=== PATIENT | female | born 1995 | race Two or more races ===

== ENCOUNTER 2016-07-09 17:21 | Emergency (ER) | payer OTHER ==
[~2016-07-09] VITALS: Ht 154.9 cm; Wt 59.3 kg
[~2016-07-09 17:21] MED LIST: AMOXICILLIN500 MG PO; CLARITHROMYCIN500 M1 PO; CYANOCOBAL1000 MCG/2 IM; CYANOCOBALAM1000 MCG PO; FOLIC ACID1 MG PO; HYDROXYZINE HCL50 MG PO; MEDROL DOSEPAK4 MG PO; METOCLOPRAMIDE H5 MG PO; OMEPRAZOLE20 MG PO; TEMAZEPAM15 MG PO; TRAMADOL HCL50 MG PO; VITAMIN D50000 UNI4 PO
[2016-07-09 17:48] LABS: HEMATOCRIT 39.1 % (36.0-46.0); MCH 29.7 PG (29.0-34.0); MCHC 32.7 G/DL (30.0-36.0); MCV 90.7 FL (83-99); PLATELET COUNT 259 K/uL (156-360); RBC DIS.WIDTH-CV 12.2 % (11.8-14.6); RBC DIS.WIDTH-SD 40.9 % (39-53); RED BLOOD COUNT 4.31 M/uL (3.80-5.20); WHITE BLOOD COUNT 6.1 K/uL (4.1-10.2)
[2016-07-09 17:57] LABS: CHLORIDE 113 mEq/L (99-109); SODIUM 143 mEq/L (136-147)
[2016-07-09 17:59] LABS: GLUCOSE 123 mg/dL (70-99)
[2016-07-09 18:00] LABS: ANION GAP 9 MEQ/L (2-14)
[2016-07-09 18:01] LABS: TOTAL BILIRUBIN 0.5 mg/dL (0.0-1.0)
[2016-07-09 18:03] LABS: ALKALINE PHOSPHATASE 37 IU/L (3-129); GFR ESTIMATE (CALCULATED) > 59 mL/min/
[2016-07-09 18:04] LABS: ADD MIUA? YES; BILIRUBIN NEGATIVE; BLOOD NEGATIVE; COLOR YELLOW ((YELLOW)); GLUCOSE (STRIP) NEGATIVE; KETONES 5; LEUKOCYTES TRACE; NITRITE NEGATIVE; PROTEIN (STRIP) 100; SPECIFIC GRAVITY 1.035 (1.000-1.030); UROBILINOGEN 0.2 MG/DL (0.2-1.0)
[2016-07-09 18:04] LABS: UREA NITROGEN (BUN) 16 mg/dL (9-23)
[2016-07-09 18:07] LABS: BACTERIA RARE /HPF; EPITHELIAL CELLS RARE /HPF; MUCUS TRACE /LPF; RED BLOOD CELLS 0-5 /HPF (0-5); UCUL ADDED? NO; WHITE BLOOD CELLS 0-5 /HPF (0-5)
[2016-07-09 18:13] LABS: QUANTITATIVE HCG < 4.0 MIU/ML
[2016-07-09] MEDS ORDERED: SKELAXIN800 MG PO (21:03)
[2016-07-09 21:14] VITALS: BP 124/76
== END 2016-07-09 21:15 | disposition home or self-care (01) ==
LOC: EME 17:21
PROVIDERS: Physician Assistant
DX: M54.5 Low back pain (principal); R30.0 Dysuria; Z87.891 Personal history of nicotine dependence
CPT/HCPCS: 76770; 80053; 81003; 84702; 85027; 99281; 99283